=== PATIENT | male | born 1950 | race Caucasian/White ===

== ENCOUNTER 2017-03-25 06:22 | Day surgery (SDC) | payer MEDICARE, OTHER ==
[2017-03-22 09:17] VITALS: BMI 20.9
[~2017-03-25 06:22] MED LIST: ACETAMINOPHEN IVPB ONE; DEXAMETHASONE SOD PHOSPHATE 10 MG/ML 1 ML VIAL IV ONE; HEPARIN SODIUM,PORCINE 5,000 UNIT/ML 1 ML VIAL SQ ONE; HYDROmorphone 1 MG/ML 1 ML SYRINGE IVP PRN; LACTATED RINGERS 1,000 ML IV SCH; MIDAZOLAM 2 MG/2 ML VIAL IV PRN; ONDANSETRON 4 MG/2 ML VIAL IVP ONE; ceFAZolin 2 GM in SODIUM CHLORIDE 0.9% 100 ML IVPB ONE
--- NOTE | 2017-03-25 06:45 | P.GSHP ---
History of Present Illness H&P Date: 03/25/17 CHIEF COMPLAINT: Inguinal hernia, left. HISTORY OF PRESENT ILLNESS: The patient is a 66-year-old male who presents with a history of swelling and pain along the left groin. He's noted increased swelling including pain of the area. Now he presents for repair of his inguinal hernia. PAST MEDICAL HISTORY: Please see list. PAST SURGICAL HISTORY: Please see list. MEDICATIONS: Please see list. ALLERGIES: Please see list. SOCIAL HISTORY: No illicit drug use FAMILY HISTORY: No reports of Crohn disease or ulcerative colitis. REVIEW OF ORGAN SYSTEMS: CONSTITUTIONAL: No reports of fevers or chills. No reports of weight loss despite prior attempts. GI: Denies any blood in stools or constipation. PHYSICAL EXAM: VITAL SIGNS: Stable GENERAL: Well-developed pleasant male in no acute distress. HEENT: No scleral icterus. Extraocular movements grossly intact. Moist buccal mucosa. NECK: Supple without lymphadenopathy. CHEST: Unlabored respirations. Equal bilateral excursions. CARDIOVASCULAR: Regular rate and rhythm. Distal 2+ pulses. ABDOMEN: Soft, nondistended. No peritoneal signs. Palpable defect of the left groin. MUSCULOSKELETAL: No clubbing, cyanosis, or edema. ASSESSMENT: 1. Inguinal hernia, left and symptomatic. PLAN: 1. Recommend proceeding with a robotic assisted laparoscopic inguinal repair with mesh with possible bilateral approach. 2. Benefits and risks of surgical intervention was discussed including possibility of open technique. 3. Antibiotic prophylaxis. 4. DVT prophylaxis. Past Medical History Past Medical History: Hyperlipidemia, Myocardial Infarction (ND) Last Myocardial Infarction Date:: 03/31/16 History of Any Multi-Drug Resistant Organisms: None Reported Past Surgical History: Heart Catheterization With Stent, Hernia Repair Past Anesthesia/Blood Transfusion Reactions: No Reported Reaction Date of Last Stent Placement:: 03/31/16 Past Psychological History: Anxiety Smoking Status: Never smoker Past Alcohol Use History: None Reported Past Drug Use History: None Reported - Past Family History Father Family Medical History: Cancer Mother Family Medical History: Cancer Medications and Allergies Home Medications Medication Instructions Recorded Confirmed Type Clopidogrel [Plavix] 75 mg PO DAILY 03/22/17 03/22/17 History Pravastatin Sodium [Pravachol] 10 mg PO HS 03/22/17 03/22/17 History Allergies Allergy/AdvReac Type Severity Reaction Status Date / Time No Known Allergies Allergy Verified 03/22/17 08:45
[2017-03-25 06:51] LABS: Glucose,Whole Blood 91 mg/dL (75-99)
[2017-03-25] MEDS ORDERED: LIDOCAINE 1% 20 ML VIAL (10MG/ML) FOR IV START INTRADERMA ONE (07:00)
[2017-03-25] MEDS ORDERED: VECURONIUM 10 MG VIAL IV ONE (07:25)
[2017-03-25] MEDS ORDERED: MIDAZOLAM 2 MG/2 ML VIAL ONE (07:25)
[2017-03-25] MEDS ORDERED: PROPOFOL 10 MG/ML 20 ML VIAL IV ONE (07:25)
[2017-03-25] MEDS ORDERED: GLYCOPYRROLATE 0.2 MG/ML 2 ML VIAL ONE (07:25)
[2017-03-25] MEDS ORDERED: NEOSTIGMINE 1 MG/ML 10 ML VIAL ONE (07:25)
[2017-03-25] MEDS ORDERED: fentaNYL (PF) 50 MCG/ML 2 ML AMP ONE (07:25)
[2017-03-25] MEDS ORDERED: SUCCINYLCHOLINE CHLORIDE 100 MG/5 ML SYR IV ONE (07:25)
[2017-03-25] MEDS ORDERED: PHENYLEPHRINE-0.9% NACL SYG 1 MG/10 ML SYRINGE ONE (07:25)
[2017-03-25] MEDS ORDERED: LIDOCAINE 1% INJ 10MG/ML (20 ML MDV) ONE (07:25)
[2017-03-25] MEDS ORDERED: ePHEDrine SULFATE/0.9% NACL/PF 50 MG/5 ML SYRINGE IV ONE (07:25)
[2017-03-25] MEDS ORDERED: BUPIVACAINE (PF) 0.25% 30 ML VIAL SQ ONE (08:08)
--- NOTE | 2017-03-25 08:56 | P.PCN ---
Date of Procedure: 03/25/17 Preoperative Diagnosis: Left inguinal hernia, right groin pain Postoperative Diagnosis: Left indirect and direct inguinal hernia with incarcerated inguinal lipoma, acute appendicitis Procedure(s) Performed: Robotic-assisted laparoscopic left inguinal hernia repair with mesh, laparoscopic appendectomy Implants: Anesthesia: GETA, local Surgeon: Sumi Murphy Estimated Blood Loss (ml): 5 Pathology: other (Left inguinal hernia sac including inguinal lipoma, appendix) Condition: stable Disposition: same day Indications for Procedure: 1. A dilated appendix consistent with right groin pain, and early appendicitis 2. No recurrent right inguinal hernia 3. Left indirect including large direct inguinal hernia, 2 cm with incarceration Operative Findings: Description of Procedure:
[2017-03-25] MEDS ORDERED: NALOXONE 0.4 MG/ML 1 ML VIAL IV PRN (08:58)
[2017-03-25] MEDS ORDERED: HYDROcodone/APAP 5-325MG 1 EACH TAB PO PRN (08:58)
[2017-03-25] MEDS ORDERED: KETOROLAC 30 MG/ML 1 ML VIAL IVP STA (08:59)
[2017-03-25] MEDS ORDERED: TAMSULOSIN 0.4 MG CAP.ER.24H PO STA (08:59)
[2017-03-25 09:13] VITALS: TEMP 97.8
[2017-03-25] MEDS ORDERED: HYDROmorphone 1 MG/ML 1 ML SYRINGE IVP ONE ×2 (09:31→10:36)
[2017-03-25] MEDS ORDERED: TAMSULOSIN 0.4 MG CAP.ER.24H PO ONE (10:10)
[2017-03-25] MEDS ORDERED: LACTATED RINGERS 1,000 ML IV ONE (10:42)
[2017-03-25 11:24] VITALS: RESP 16
[2017-03-25] MEDS ORDERED: HYDROcodone/APAP 5-325MG 1 EACH TAB PO ONE (12:51)
[2017-03-25 14:13] VITALS: BP 124/75; PULSE 68
== END 2017-03-25 14:25 | disposition home or self-care (01) ==
LOC: OR 06:22
PROVIDERS: ATTEND Surgery Plastic and Reconstructive Surgery
DX: K40.30 Unilateral inguinal hernia, with obstruction, without gangrene, not specified as recurrent (principal); K35.80 Unspecified acute appendicitis; D17.6 Benign lipomatous neoplasm of spermatic cord; E78.5 Hyperlipidemia, unspecified; I25.2 Old myocardial infarction; Z95.5 Presence of coronary angioplasty implant and graft; Z79.02 Long term (current) use of antithrombotics/antiplatelets; Z79.82 Long term (current) use of aspirin; Z79.899 Other long term (current) drug therapy
CPT/HCPCS: 44970; S2900; 88302; 88304

== ENCOUNTER 2019-07-09 07:24 | Day surgery (SDC) | payer OTHER ==
[2019-07-05 09:34] VITALS: BMI 24.8
[~2019-07-09 07:24] MED LIST changes: -ACETAMINOPHEN IVPB ONE; -DEXAMETHASONE SOD PHOSPHATE 10 MG/ML 1 ML VIAL IV ONE; -HEPARIN SODIUM,PORCINE 5,000 UNIT/ML 1 ML VIAL SQ ONE; -HYDROmorphone 1 MG/ML 1 ML SYRINGE IVP PRN; -MIDAZOLAM 2 MG/2 ML VIAL IV PRN; -ONDANSETRON 4 MG/2 ML VIAL IVP ONE; -ceFAZolin 2 GM in SODIUM CHLORIDE 0.9% 100 ML IVPB ONE
[2019-07-09] MEDS ORDERED: LIDOCAINE 1% 20 ML VIAL (10MG/ML) FOR IV START INTRADERMA ONE (07:49)
[2019-07-09] MEDS ORDERED: LACTATED RINGERS 1,000 ML IV ONE (07:49)
[2019-07-09] MEDS ORDERED: PROPOFOL 10 MG/ML 20 ML VIAL IV ONE (08:30)
--- NOTE | 2019-07-09 09:00 | P.PCN ---
Date of Procedure: 07/09/19 Description of Procedure: BRIEF HISTORY: Patient is a 68-year-old pleasant male scheduled for an elective colonoscopy as a part of screening for malignant neoplasm of the colon. Denies any change in bowel habits, blood per rectum. Does report a family history of colon cancer in his father. Last colonoscopy 5 years ago per his recollection. PROCEDURE PERFORMED: Colonoscopy. PREOPERATIVE DIAGNOSIS: Screening for malignant neoplasm colon, last colonoscopy 5 years ago. ESTIMATED BLOOD LOSS: Minimal. IV sedation per Anesthesia. PROCEDURE: After informed consent was obtained, the patient, was brought into the endoscopy unit. IV sedation was administered by Anesthesia under continuous monitoring. Digital rectal examination was normal. Initially the Olympus CF-190 flexible video colonoscope was then inserted in the rectum, gradually advanced into the cecum without any difficulty. Careful examination was performed as the scope was gradually being withdrawn. Ileocecal valve and the appendiceal orifice were visualized and appeared normal. Prep was excellent. Mucosa of the cecum, ascending colon, transverse colon, descending colon, sigmoid colon, and rectum appeared normal. Multiple small mouth left colonic diverticula noted. Retroflexion was performed in the rectum and no lesions were seen, moderate internal hemorrhoids. The patient tolerated the procedure well. IMPRESSION: Left colonic diverticulosis. Moderate internal hemorrhoids. RECOMMENDATIONS: Findings of this examination were discussed with the patient and his . Okay to resume diet. Okay to resume medications. Would recommend repeat colonoscopy in 5 years for family history of colon cancer.
[2019-07-09 09:05] VITALS: RESP 16
[2019-07-09 09:19] VITALS: BP 129/77; PULSE 70
== END 2019-07-09 09:44 | disposition home or self-care (01) ==
LOC: ORWHC2ENDO 07:24
PROVIDERS: ATTEND Internal Medicine
DX: Z12.11 Encounter for screening for malignant neoplasm of colon (principal); K57.30 Diverticulosis of large intestine without perforation or abscess without bleeding; K64.8 Other hemorrhoids; I25.10 Atherosclerotic heart disease of native coronary artery without angina pectoris; Z80.0 Family history of malignant neoplasm of digestive organs; Z79.82 Long term (current) use of aspirin; Z88.8 Allergy status to other drugs, medicaments and biological substances; Z90.49 Acquired absence of other specified parts of digestive tract; Z90.89 Acquired absence of other organs; Z95.5 Presence of coronary angioplasty implant and graft; Z98.890 Other specified postprocedural states
CPT/HCPCS: J2704; G0105; 45378